=== PATIENT | female | born 1955 | race Caucasian/White ===

== ENCOUNTER 2021-01-13 23:04 | Emergency (ER) | payer MEDICAID ==
[2021-01-14 00:04] LABS: BASO # 0.1 (0.02-0.10); EOS # 0.2 (0.04-0.40); EOS % 1.9 % (1.0-5.0); HEMATOCRIT 47.9 % (37.0-47.0); HEMOGLOBIN 16.1 g/dL (12.5-16.0); MEAN CELL VOLUME 87 fl (78-100); MEAN CORPUSCULAR HEMOGLOBIN 29 pg (27-31); MEAN CORPUSCULAR HGB CONC 34 g/dL (33-37); PLATELET COUNT 189 K/mm3 (130-400); RED BLOOD COUNT 5.51 M/mm3 (4.10-5.30); RED CELL DISTRIBUTION WIDTH 13.4 % (11.5-14.5); WHITE BLOOD COUNT 10.3 K/mm3 (4.8-10.8)
[2021-01-14 00:06] LABS: MEAN PLATELET VOLUME 12.4 fl (7.4-10.4)
[2021-01-14 00:22] LABS: ALBUMIN 3.9 g/dL (3.4-4.8)
[2021-01-14 00:24] LABS: URINE APPEARANCE CLEAR; URINE BILIRUBIN NEGATIVE (NEGATIVE); URINE BLOOD TRACE (NEGATIVE); URINE COLOR LT YELLOW; URINE KETONE NEGATIVE (NEGATIVE); URINE LEUKOCYTE ESTERASE TRACE (NEGATIVE); URINE NITRATE NEGATIVE (NEGATIVE); URINE PROTEIN(semi-quant) TRACE mg/dL (NEGATIVE); URINE UROBILINOGEN NORMAL (NORMAL)
[2021-01-14 00:24] LABS: CALCIUM 8.2 mg/dL (8.3-10.5)
[2021-01-14 00:25] LABS: TOTAL PROTEIN 6.6 g/dL (6.2-8.1)
[2021-01-14 00:27] LABS: TOTAL BILIRUBIN 0.5 mg/dL (0.2-1.2)
[2021-01-14 00:29] LABS: POTASSIUM 2.5 mmol/L (3.5-5.1)
[2021-01-14] MEDS ORDERED: AMBIEN5 M1 PO (00:36)
[2021-01-14] MEDS ORDERED: KLONOPIN 0.5MG0.5 MG PO (00:36)
[2021-01-14] MEDS ORDERED: DESYREL 100MG100 MG PO (00:36)
[2021-01-14] MEDS ORDERED: REMERON15 MG PO (00:37)
[2021-01-14 00:49] LABS: ALCOHOL IN-HOUSE < 10 mg/dL (<10)
[2021-01-14 00:53] LABS: MAGNESIUM 1.7 mg/dL (1.60-2.60)
[2021-01-14] MEDS ORDERED: LEXAPRO 10MG10 MG PO (01:54)
[2021-01-14] MEDS ORDERED: SINGULAIR PO (01:54)
[2021-01-14] MEDS ORDERED: EFFIENT10 M1 PO (01:55)
[2021-01-14] MEDS ORDERED: LOPRESSOR 225 MG/TAB PO (01:55)
[2021-01-14] MEDS ORDERED: JANUVIA 100MG100 MG PO (01:55)
[2021-01-14] MEDS ORDERED: COZAAR 50MG50 MG/TAB PO (01:56)
[2021-01-14] MEDS ORDERED: TRILIPIX 135MG PO (01:56)
[2021-01-14] MEDS ORDERED: BUTALB-ASPIRIN1 EACH PO (01:57)
[2021-01-14] MEDS ORDERED: ISOSORBIDE30 MG PO (01:57)
[2021-01-14] MEDS ORDERED: LEVOTHYROXIN0.025 MG PO (01:57)
[2021-01-14] MEDS ORDERED: PROGESTERONE200 MG PO (01:58)
[2021-01-14] MEDS ORDERED: CRESTOR40 MG PO (01:58)
[2021-01-14] MEDS ORDERED: OMEGA 3 1,0001 EACH PO (01:59)
[2021-01-14 07:02] LABS: CALCIUM 8.1 mg/dL (8.3-10.5)
[2021-01-14 07:13] LABS: POTASSIUM 2.8 mmol/L (3.5-5.1)
[2021-01-14 17:42] VITALS: BP 134/70
== END 2021-01-14 17:40 | disposition short-term general hospital (02) ==
LOC: ED 23:04
PROVIDERS: Family Medicine
DX: E11.65 Type 2 diabetes mellitus with hyperglycemia (principal); E87.6 Hypokalemia; R44.3 Hallucinations, unspecified; J44.9 Chronic obstructive pulmonary disease, unspecified; F31.9 Bipolar disorder, unspecified; I25.10 Atherosclerotic heart disease of native coronary artery without angina pectoris; F17.210 Nicotine dependence, cigarettes, uncomplicated; Z91.14 Patient's other noncompliance with medication regimen; Z95.9 Presence of cardiac and vascular implant and graft, unspecified; Z79.82 Long term (current) use of aspirin
CPT/HCPCS: J1815; J3475; J3480; J7030